=== PATIENT | male | born 1995 | race Caucasian/White ===

== ENCOUNTER 2021-02-08 01:25 | Observation (INO) | payer MEDICAID ==
--- NOTE | 2021-02-08 01:50 | ERPHSYRPT ---
- History of Present Illness Time Seen by Provider: 02/08/21 01:40 Source: patient, EMS, police Exam Limitations: no limitations Physician History: This is a 25-year-old white male who was brought into the emergency department because of suicidal ideation/thoughts. Patient admits to consuming alcohol. Patient is under a lot of stress. His is as is his patient girlfriend. Patient states that he has been under a lot of pressure for quite a while now. Patient was asked by law enforcement who brought him into the emergency department that he have a plan. Law enforcement asked if he was going to use a knife. The patient then stated no he would use a gun because a knife would be too messy. Patient does not have any chest pain or shortness of melissa ath. Timing/Duration: today Severity of Symptoms-Max: moderate Severity of Symptoms-Current: moderate Suicidal thoughts: specific plan Associated Symptoms: anxiety, depressed, suicidal ideation, other (Under a lot of stress) Previous symptoms: no prior history Allergies/Adverse Reactions: No Known Drug Allergies Allergy (Unverified 02/08/21 01:48) Home Medications: No Reportable Medications [No Reported Medications] 02/08/21 [History] Travel Risk - International Travel Have you traveled outside of the country in past 3 weeks: No - Coronavirus Screening Are you exhibiting any of the following symptoms?: No Close contact with a COVID-19 positive Pt in past 14-21 Days: No - Past Medical History Pertinent Past Medical History: Yes - Past Surgical History Past Surgical History: Yes - Review of Systems Constitutional: No Symptoms Eyes: No Symptoms Ears, Nose, & Throat: No Symptoms Respiratory: No Symptoms Cardiac: No Symptoms Abdominal/Gastrointestinal: No Symptoms Genitourinary Symptoms: No Symptoms Musculoskeletal: No Symptoms Skin: No Symptoms Neurological: No Symptoms Psychological: Suicidal Ideations Endocrine: No Symptoms Hematologic/Lymphatic: No Symptoms Immunological/Allergic: No Symptoms All Other Systems: Reviewed and Negative - Nursing Vital Signs Nursing Vital Signs: Initial Vital Signs Temperature 97.3 F 02/08/21 01:26 Pulse Rate 90 02/08/21 01:26 Respiratory Rate 20 02/08/21 01:26 Blood Pressure 106/83 02/08/21 01:26 O2 Sat by Pulse Oximetry 98 02/08/21 01:26 Pain Scale Pain Intensity 0 - Physical Exam General Appearance: no apparent distress, alert, anxiety, other (Alcohol intox ication) Eyes, Ears, Nose, Throat Exam: normal ENT inspection, moist mucous membranes Neck Exam: normal inspection, non-tender, supple, full range of motion Respiratory Exam: normal breath sounds, lungs clear, airway intact, No chest tenderness, No respiratory distress Cardiovascular Exam: regular rate/rhythm, normal heart sounds, normal peripheral pulses Gastrointestinal/Abdominal Exam: soft, normal bowel sounds, No tenderness Extremities Exam: normal inspection, normal range of motion, No evidence of injury Current Suicidality: denies suicide plan, has suicide plan Neurological Exam: alert, normal mood/affect, calm, 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 No comparison EKG.) Ordered Tests: Active Orders 24 hr Category Date Time Status EKG-ER Only STAT Care 02/08/21 02:02 Active ACETAMINOPHEN Stat Lab 02/08/21 02:09 Completed CBC W DIFF Stat Lab 02/08/21 02:09 Completed CMP Stat Lab 02/08/21 02:09 Completed ETHYL ALCOHOL Stat Lab 02/08/21 02:09 Completed SALICYLATE Stat Lab 02/08/21 02:09 Completed UA W/RFX UR CULTURE Stat Lab 02/08/21 02:24 Completed Urine Triage Profile Stat Lab 02/08/21 02:24 Completed Lab/Rad Data: Laboratory Result Diagrams 02/08/21 02:09 02/08/21 02:09 Laboratory Results 02/08/21 02/08/21 02/08/21 Range/Units 03:10 02:24 02:24 WBC (4.0-10.5) K/mm3 RBC (4.1-5.6) M/mm3 Hgb (12.5-18.0) gm/dl Hct (42-50) % MCV (78-100) fl MCH (26-32) pg MCHC (32-36) g/dl RDW (11.5-14.0) % Plt Count (150-450) K/mm3 MPV (7.5-11.0) fl Gran % (36.0-66.0) % Eos # (Auto) (0-0.5) Absolute Lymphs (auto) (1.0-4.6) Absolute Monos (auto) (0.0-1.3) Lymphocytes % (24.0-44.0) % Monocytes % (0.0-12.0) % Eosinophils % (0.00-5.0) % Basophils % (0.0-0.4) % Absolute Granulocytes (1.4-6.9) Basophils # (0-0.4) Sodium (137-145) mmol/L Potassium (3.5-5.1) mmol/L Chloride (98-107) mmol/L Carbon Dioxide (22-30) mmol/L Anion Gap (5-15) MEQ/L BUN (9-20) mg/dL Creatinine (0.66-1.25) mg/dL Estimated GFR ML/MIN Glucose (74-106) mg/dL Calcium (8.4-10.2) mg/dL Total Bilirubin (0.2-1.3) mg/dL AST (17-59) U/L ALT (0-50) U/L Alkaline Phosphatase (38-126) U/L Serum Total Protein (6.3-8.2) g/dL Albumin (3.5-5.0) g/dL Urine Color STRAW (YELLOW) Urine Appearance CLEAR (CLEAR) Urine pH 6.0 (5-6) Ur Specific [place] 1.005 (1.005-1.025) Urine Protein NEGATIVE (Negative) Urine Ketones NEGATIVE (NEGATIVE) Urine Blood NEGATIVE (0-5) Mark/ul Urine Nitrite NEGATIVE (NEGATIVE) Urine Bilirubin NEGATIVE (NEGATIVE) Urine Urobilinogen NEGATIVE (0-1) mg/dL Ur Leukocyte Esterase NEGATIVE (NEGATIVE) Urine WBC (Auto) NONE (0-5) /HPF Urine RBC (Auto) NONE (0-2) /HPF U Epithel Cells (Auto) NONE (FEW) /HPF Urine Bacteria (Auto) NONE (NEGATIVE) /HPF Urine Culture Reflexed NO (NO) Urine Glucose NEGATIVE (NEGATIVE) mg/dL Salicylates (2-20) mg/dL Urine Opiates Level NEGATIVE (NEGATIVE) Ur Methadone NEGATIVE (NEGATIVE) Acetaminophen (10-30) ug/ml Urine Barbiturates NEGATIVE (NEGATIVE) Ur Phencyclidine (PCP) NEGATIVE (NEGATIVE) Urine Amphetamine NEGATIVE (NEGATIVE) U Benzodiazepine Level NEGATIVE (NEGATIVE) Urine Cocaine NEGATIVE (NEGATIVE) Urine Marijuana (THC) POSITIVE (NEGATIVE) Ethyl Alcohol (0-10) mg/dL SARS-CoV-2 (PCR) NEGATIVE (NEGATIVE) 02/08/21 02/08/21 Range/Units 02:09 02:09 WBC 6.6 (4.0-10.5) K/mm3 RBC 5.08 (4.1-5.6) M/mm3 Hgb 15.8 (12.5-18.0) gm/dl Hct 46.9 (42-50) % MCV 92.3 (78-100) fl MCH 31.1 (26-32) pg MCHC 33.7 (32-36) g/dl RDW 13.4 (11.5-14.0) % Plt Count 268 (150-450) K/mm3 MPV 10.7 (7.5-11.0) fl Gran % 49.3 (36.0-66.0) % Eos # (Auto) 0.23 (0-0.5) Absolute Lymphs (auto) 2.58 (1.0-4.6) Absolute Monos (auto) 0.46 (0.0-1.3) Lymphocytes % 39.3 (24.0-44.0) % Monocytes % 7.0 (0.0-12.0) % Eosinophils % 3.5 (0.00-5.0) % Basophils % 0.9 (0.0-0.4) % Absolute Granulocytes 3.24 (1.4-6.9) Basophils # 0.06 (0-0.4) Sodium 144 (137-145) mmol/L Potassium 4.1 (3.5-5.1) mmol/L Chloride 107 (98-107) mmol/L Carbon Dioxide 25 (22-30) mmol/L Anion Gap 15.4 H (5-15) MEQ/L BUN 13 (9-20) mg/dL Creatinine 1.14 (0.66-1.25) mg/dL Estimated GFR > 60.0 ML/MIN Glucose 96 (74-106) mg/dL Calcium 9.3 (8.4-10.2) mg/dL Total Bilirubin 0.50 (0.2-1.3) mg/dL AST 92 H (17-59) U/L ALT 165 H (0-50) U/L Alkaline Phosphatase 76 (38-126) U/L Serum Total Protein 7.9 (6.3-8.2) g/dL Albumin 4.9 (3.5-5.0) g/dL Urine Color (YELLOW) Urine Appearance (CLEAR) Urine pH (5-6) Ur Specific [place] (1.005-1.025) Urine Protein (Negative) Urine Ketones (NEGATIVE) Urine Blood (0-5) Mark/ul Urine Nitrite (NEGATIVE) Urine Bilirubin (NEGATIVE) Urine Urobilinogen (0-1) mg/dL Ur Leukocyte Esterase (NEGATIVE) Urine WBC (Auto) (0-5) /HPF Urine RBC (Auto) (0-2) /HPF U Epithel Cells (Auto) (FEW) /HPF Urine Bacteria (Auto) (NEGATIVE) /HPF Urine Culture Reflexed (NO) Urine Glucose (NEGATIVE) mg/dL Salicylates < 1.0 L (2-20) mg/dL Urine Opiates Level (NEGATIVE) Ur Methadone (NEGATIVE) Acetaminophen < 10 L (10-30) ug/ml Urine Barbiturates (NEGATIVE) Ur Phencyclidine (PCP) (NEGATIVE) Urine Amphetamine (NEGATIVE) U Benzodiazepine Level (NEGATIVE) Urine Cocaine (NEGATIVE) Urine Marijuana (THC) (NEGATIVE) Ethyl Alcohol 223 H (0-10) mg/dL SARS-CoV-2 (PCR) (NEGATIVE) - Progress Progress: improved Progress Note: 02/08/21 03:13 Medical decision making: This patient is medically cleared for psychiatric consultation. However, they require his blood alcohol to be in normal range. It is not. His blood alcohol is too high to obtain a consultation. Therefore, we will place him in observation into the hospital and will repeat blood alcohol level in a few hours. I spoke with Dr. Wilkerson who is covering for unassigned patients. This patient does not have a primary care physician. We will place him in observation. I discussed this with the patient he understands and agrees. Discussed with : Lyle Counseled pt/family regarding: lab results, diagnosis - Departure Departure Disposition: Observation Clinical Impression: Suicidal ideation, Alcohol intoxication Condition: Stable Critical Care Time: No
[2021-02-08 02:17] LABS: Absolute Neutrophil Ct (ANC) 3.24 (1.4-6.9); BASOPHIL % 0.9 % (0.0-0.4); Basophil (Absolute #) 0.06 (0-0.4); Eosinophil % 3.5 % (0.00-5.0); Eosinophil (Absolute #) 0.23 (0-0.5); Hematocrit 46.9 % (42-50); Hemoglobin 15.8 gm/dl (12.5-18.0); Lymphocyte (Absolute #) 2.58 (1.0-4.6); Lymphocytes % 39.3 % (24.0-44.0); Mean Cell Volume 92.3 fl (78-100); Mean Corpuscular Hemoglobin 31.1 pg (26-32); Mean Corpuscular Hgb Concent. 33.7 g/dl (32-36); Mean Platelet Volume 10.7 fl (7.5-11.0); Monocyte (Absolute #) 0.46 (0.0-1.3); Neutrophil % 49.3 % (36.0-66.0); Platelet Count 268 K/mm3 (150-450); Red Blood Count 5.08 M/mm3 (4.1-5.6); Red Cell Distribution Width 13.4 % (11.5-14.0); White Blood Count 6.6 K/mm3 (4.0-10.5)
[2021-02-08 02:24] LABS: ACETAMINOPHEN < 10 ug/ml (10-30); ALBUMIN 4.9 g/dL (3.5-5.0); ALKALINE PHOSPHATASE 76 U/L (38-126); ANION GAP 15.4 MEQ/L (5-15); BLOOD UREA NITROGEN 13 mg/dL (9-20); CHLORIDE 107 mmol/L (98-107); Calcium 9.3 mg/dL (8.4-10.2); Carbon Dioxide 25 mmol/L (22-30); Creatinine 1 1.14 mg/dL (0.66-1.25); EST GLOMERULAR FILTRATION RATE > 60.0 ML/MIN; ETHYL ALCOHOL 223 mg/dL (0-10); Glucose 96 mg/dL (74-106); Potassium 4.1 mmol/L (3.5-5.1); SALICYLATE < 1.0 mg/dL (2-20); SGOT/AST 92 U/L (17-59); SGPT/ALT 165 U/L (0-50); SODIUM 144 mmol/L (137-145); Total Protein 7.9 g/dL (6.3-8.2)
[2021-02-08 03:33] LABS: Appearance CLEAR (CLEAR); Bilirubin NEGATIVE (NEGATIVE); Blood NEGATIVE Ery/ul (0-5); Glucose NEGATIVE (NEGATIVE); Ketones NEGATIVE (NEGATIVE); Leukocyte Esterase NEGATIVE (NEGATIVE); Nitrite NEGATIVE (NEGATIVE); Protein,Urine Dip NEGATIVE (Negative); Specific Gravity 1.005 (1.005-1.025); Urobilinogen NEGATIVE mg/dL (0-1)
[2021-02-08 03:38] LABS: Amphetamine,Urine NEGATIVE (NEGATIVE); Barbiturate,Urine NEGATIVE (NEGATIVE); Benzodiazepine,Urine NEGATIVE (NEGATIVE); Cocaine,Urine NEGATIVE (NEGATIVE); Methadone,Urine NEGATIVE (NEGATIVE); Opiate,Urine NEGATIVE (NEGATIVE); PCP,Urine NEGATIVE (NEGATIVE); THC,Urine POSITIVE (NEGATIVE)
[2021-02-08] MEDS ORDERED: ZOFRAN ODT 4 MG PO PRN (04:32)
--- NOTE | 2021-02-08 08:34 | PCM.HP ---
History of Present Illness - Chief Complaint Chief Complaint: SI History of Present Illness: is a 25 year old male who presented to the ER last night, he was drinking heavily and apparently made some comments about being suicidal, he currently lives with his girlfriend and 2 small children ages 2 years and 3 weeks. He reports that he is under a lot of stress and his relationship with the mother of his children is tenuous. He reports that they were both drinking alcohol and she began to upset him which led to this incident. He denies having a plan and denies feeling suicidal today, he has no prior suicide attempts and has never been treated for depression in the past. He reports some marijuana use but no other illicit drugs, last smoked 2-3 weeks ago. States he has had a problem with alcohol in the past so doesn't drink every day. - Review of Systems Constitutional: No Fever, No Chills Respiratory: No Cough, No Short Of Breath Cardiac: No Chest Pain, No Edema, No Syncope Abdominal/Gastrointestinal: No Abdominal Pain, No Nausea, No Vomiting, No Diarrhea Skin: No Rash Psychological: Alcohol Abuse, Drug Abuse, Suicidal Ideations, No Homicidal Ideations, No Hallucinations Medications & Allergies Home Medications: Home Medication List No Reportable Medications [No Reported Medications] 02/08/21 [History Confirmed 02/08/21] Allergies/Adverse Reactions: Allergies Allergy/AdvReac Type Severity Reaction Status Date / Time No Known Drug Allergies Allergy Unverified 02/08/21 01:48 - Past Medical History Past Medical History: Yes Neurological History: No Pertinent History ENT History: No Pertinent History Cardiac History: No Pertinent History Respiratory History: No Pertinent History Endocrine Medical History: No Pertinent History Musculoskelatal History: Fractures GI Medical History: No Pertinent History History: No Pertinent History Pyscho-Social History: Anxiety, Depression Male Reproductive Disorders: No Pertinent History Comment: lt wrist fx - Past Surgical History Past Surgical History: Yes Neuro Surgical History: No Pertinent History Cardiac History: No Pertinent History Respiratory Surgery: No Pertinent History GI Surgical History: No Pertinent History Genitourinary Surgical Hx: No Pertinent History Musculskeletal Surgical Hx: No Pertinent History Male Surgical History: No Pertinent History - Social History Smoking Status: Current every day smoker How long have you smoked: 13 yrs Exposure to second hand smoke: Yes Alcohol: Daily Drug Use: marijuana - Physical Exam Vital Signs: Vital Signs - 24 hr Temp Pulse Resp BP Pulse Ox 02/08/21 08:00 97.4 F 85 14 106/59 96 02/08/21 05:21 97.7 F 84 21 128/66 98 02/08/21 04:26 98 02/08/21 04:21 88 94/53 95 02/08/21 03:29 83 90/60 94 L 02/08/21 01:26 97.3 F 90 20 106/83 98 General Appearance: no apparent distress Neurologic Exam: alert, oriented x 3, cooperative Respiratory Exam: normal breath sounds, lungs clear, No respiratory distress Cardiovascular Exam: regular rate/rhythm, normal heart sounds, normal peripheral pulses Gastrointestinal/Abdomen Exam: soft, normal bowel sounds, No tenderness, No mass Extremity Exam: normal inspection, normal range of motion, pelvis stable Skin Exam: normal color, warm, dry, No rash Results - Labs Lab/Micro Results: Lab Results-Last 24 Hours 02/08/21 02/08/21 02/08/21 Range/Units 02:09 02:09 02:24 WBC 6.6 (4.0-10.5) K/mm3 RBC 5.08 (4.1-5.6) M/mm3 Hgb 15.8 (12.5-18.0) gm/dl Hct 46.9 (42-50) % MCV 92.3 (78-100) fl MCH 31.1 (26-32) pg MCHC 33.7 (32-36) g/dl RDW 13.4 (11.5-14.0) % Plt Count 268 (150-450) K/mm3 MPV 10.7 (7.5-11.0) fl Gran % 49.3 (36.0-66.0) % Eos # (Auto) 0.23 (0-0.5) Absolute Lymphs (auto) 2.58 (1.0-4.6) Absolute Monos (auto) 0.46 (0.0-1.3) Lymphocytes % 39.3 (24.0-44.0) % Monocytes % 7.0 (0.0-12.0) % Eosinophils % 3.5 (0.00-5.0) % Basophils % 0.9 (0.0-0.4) % Absolute Granulocytes 3.24 (1.4-6.9) Basophils # 0.06 (0-0.4) Sodium 144 (137-145) mmol/L Potassium 4.1 (3.5-5.1) mmol/L Chloride 107 (98-107) mmol/L Carbon Dioxide 25 (22-30) mmol/L Anion Gap 15.4 H (5-15) MEQ/L BUN 13 (9-20) mg/dL Creatinine 1.14 (0.66-1.25) mg/dL Estimated GFR > 60.0 ML/MIN Glucose 96 (74-106) mg/dL Calcium 9.3 (8.4-10.2) mg/dL Total Bilirubin 0.50 (0.2-1.3) mg/dL AST 92 H (17-59) U/L ALT 165 H (0-50) U/L Alkaline Phosphatase 76 (38-126) U/L Serum Total Protein 7.9 (6.3-8.2) g/dL Albumin 4.9 (3.5-5.0) g/dL Urine Color STRAW (YELLOW) Urine Appearance CLEAR (CLEAR) Urine pH 6.0 (5-6) Ur Specific [place] 1.005 (1.005-1.025) Urine Protein NEGATIVE (Negative) Urine Ketones NEGATIVE (NEGATIVE) Urine Blood NEGATIVE (0-5) Mark/ul Urine Nitrite NEGATIVE (NEGATIVE) Urine Bilirubin NEGATIVE (NEGATIVE) Urine Urobilinogen NEGATIVE (0-1) mg/dL Ur Leukocyte Esterase NEGATIVE (NEGATIVE) Urine WBC (Auto) NONE (0-5) /HPF Urine RBC (Auto) NONE (0-2) /HPF U Epithel Cells (Auto) NONE (FEW) /HPF Urine Bacteria (Auto) NONE (NEGATIVE) /HPF Urine Culture Reflexed NO (NO) Urine Glucose NEGATIVE (NEGATIVE) mg/dL Salicylates < 1.0 L (2-20) mg/dL Urine Opiates Level (NEGATIVE) Ur Methadone (NEGATIVE) Acetaminophen < 10 L (10-30) ug/ml Urine Barbiturates (NEGATIVE) Ur Phencyclidine (PCP) (NEGATIVE) Urine Amphetamine (NEGATIVE) U Benzodiazepine Level (NEGATIVE) Urine Cocaine (NEGATIVE) Urine Marijuana (THC) (NEGATIVE) Ethyl Alcohol 223 H (0-10) mg/dL SARS-CoV-2 (PCR) (NEGATIVE) 02/08/21 02/08/21 02/08/21 Range/Units 02:24 03:10 05:50 WBC (4.0-10.5) K/mm3 RBC (4.1-5.6) M/mm3 Hgb (12.5-18.0) gm/dl Hct (42-50) % MCV (78-100) fl MCH (26-32) pg MCHC (32-36) g/dl RDW (11.5-14.0) % Plt Count (150-450) K/mm3 MPV (7.5-11.0) fl Gran % (36.0-66.0) % Eos # (Auto) (0-0.5) Absolute Lymphs (auto) (1.0-4.6) Absolute Monos (auto) (0.0-1.3) Lymphocytes % (24.0-44.0) % Monocytes % (0.0-12.0) % Eosinophils % (0.00-5.0) % Basophils % (0.0-0.4) % Absolute Granulocytes (1.4-6.9) Basophils # (0-0.4) Sodium (137-145) mmol/L Potassium (3.5-5.1) mmol/L Chloride (98-107) mmol/L Carbon Dioxide (22-30) mmol/L Anion Gap (5-15) MEQ/L BUN (9-20) mg/dL Creatinine (0.66-1.25) mg/dL Estimated GFR ML/MIN Glucose (74-106) mg/dL Calcium (8.4-10.2) mg/dL Total Bilirubin (0.2-1.3) mg/dL AST (17-59) U/L ALT (0-50) U/L Alkaline Phosphatase (38-126) U/L Serum Total Protein (6.3-8.2) g/dL Albumin (3.5-5.0) g/dL Urine Color (YELLOW) Urine Appearance (CLEAR) Urine pH (5-6) Ur Specific [place] (1.005-1.025) Urine Protein (Negative) Urine Ketones (NEGATIVE) Urine Blood (0-5) Mark/ul Urine Nitrite (NEGATIVE) Urine Bilirubin (NEGATIVE) Urine Urobilinogen (0-1) mg/dL Ur Leukocyte Esterase (NEGATIVE) Urine WBC (Auto) (0-5) /HPF Urine RBC (Auto) (0-2) /HPF U Epithel Cells (Auto) (FEW) /HPF Urine Bacteria (Auto) (NEGATIVE) /HPF Urine Culture Reflexed (NO) Urine Glucose (NEGATIVE) mg/dL Salicylates (2-20) mg/dL Urine Opiates Level NEGATIVE (NEGATIVE) Ur Methadone NEGATIVE (NEGATIVE) Acetaminophen (10-30) ug/ml Urine Barbiturates NEGATIVE (NEGATIVE) Ur Phencyclidine (PCP) NEGATIVE (NEGATIVE) Urine Amphetamine NEGATIVE (NEGATIVE) U Benzodiazepine Level NEGATIVE (NEGATIVE) Urine Cocaine NEGATIVE (NEGATIVE) Urine Marijuana (THC) POSITIVE (NEGATIVE) Ethyl Alcohol 145 H (0-10) mg/dL SARS-CoV-2 (PCR) NEGATIVE (NEGATIVE) Assessment/Plan (1) Suicidal ideation Current Visit: Yes Status: Acute Assessment & Plan: awaiting psych consult when ETOH level is down, seems remorseful and states he feels safe returning to his home and current living situation when he is released. Code(s): R45.851 - SUICIDAL IDEATIONS (2) Alcohol intoxication Current Visit: Yes Status: Acute Assessment & Plan: repeat level at 1200 today, psych consult when able
[2021-02-08 11:40] VITALS: BP 128/78; O2SAT 93
[2021-02-08 12:09] VITALS: PULSE 84
[2021-02-08 13:05] LABS: ALBUMIN 4.9 g/dL (3.5-5.0); ALKALINE PHOSPHATASE 81 U/L (38-126); BLOOD UREA NITROGEN 16 mg/dL (9-20); CHLORIDE 104 mmol/L (98-107); Calcium 9.5 mg/dL (8.4-10.2); Carbon Dioxide 24 mmol/L (22-30); Creatinine 1 1.18 mg/dL (0.66-1.25); EST GLOMERULAR FILTRATION RATE > 60.0 ML/MIN; ETHYL ALCOHOL < 10 mg/dL (0-10); Glucose 81 mg/dL (74-106); Potassium 4.1 mmol/L (3.5-5.1); SGOT/AST 71 U/L (17-59); SGPT/ALT 151 U/L (0-50); SODIUM 139 mmol/L (137-145); Total Protein 7.8 g/dL (6.3-8.2)
--- NOTE | 2021-02-08 14:08 | PCM.DS ---
Discharge Summary Date of Admission: 02/08/21 04:19 Admitting Physician: BRANDON JOSEPH Consults: Consults on Case 02/08/21 12:00 Consult,Monty [Psychiatric Consult] STAT Primary Care Provider: NO FAMILY DOCTOR Allergies Allergies No Known Drug Allergies Allergy (Unverified 02/08/21 01:48) Hospital Summary - Hospital Course Hospital Course: patient admitted with acute alcohol intoxication and suicidal ideation, he was regretful when sober this morning. denies any suicidal or homicidal ideations, no previous attempts. seen by psych and cleared for discharge with safety plan - Vitals & Intake/Output Vital Signs: Vital Signs Temperature 98.1 F 02/08/21 11:39 Pulse Rate 84 02/08/21 12:00 Respiratory Rate 14 02/08/21 12:00 Blood Pressure 128/78 02/08/21 11:39 O2 Sat by Pulse Oximetry 93 L 02/08/21 11:39 Intake & Output: Intake & Output 02/06/21 02/07/21 02/08/21 02/09/21 11:59 11:59 11:59 11:59 Intake Total 100 Balance 100 Weight 104.2 kg - Lab Result Diagrams: 02/08/21 02:09 02/08/21 12:35 Lab Results-Last 24 Hrs: Lab Results-Last 24 Hours 02/08/21 02/08/21 02/08/21 Range/Units 02:09 02:09 02:24 WBC 6.6 (4.0-10.5) K/mm3 RBC 5.08 (4.1-5.6) M/mm3 Hgb 15.8 (12.5-18.0) gm/dl Hct 46.9 (42-50) % MCV 92.3 (78-100) fl MCH 31.1 (26-32) pg MCHC 33.7 (32-36) g/dl RDW 13.4 (11.5-14.0) % Plt Count 268 (150-450) K/mm3 MPV 10.7 (7.5-11.0) fl Gran % 49.3 (36.0-66.0) % Eos # (Auto) 0.23 (0-0.5) Absolute Lymphs (auto) 2.58 (1.0-4.6) Absolute Monos (auto) 0.46 (0.0-1.3) Lymphocytes % 39.3 (24.0-44.0) % Monocytes % 7.0 (0.0-12.0) % Eosinophils % 3.5 (0.00-5.0) % Basophils % 0.9 (0.0-0.4) % Absolute Granulocytes 3.24 (1.4-6.9) Basophils # 0.06 (0-0.4) Sodium 144 (137-145) mmol/L Potassium 4.1 (3.5-5.1) mmol/L Chloride 107 (98-107) mmol/L Carbon Dioxide 25 (22-30) mmol/L Anion Gap 15.4 H (5-15) MEQ/L BUN 13 (9-20) mg/dL Creatinine 1.14 (0.66-1.25) mg/dL Estimated GFR > 60.0 ML/MIN Glucose 96 (74-106) mg/dL Calcium 9.3 (8.4-10.2) mg/dL Total Bilirubin 0.50 (0.2-1.3) mg/dL AST 92 H (17-59) U/L ALT 165 H (0-50) U/L Alkaline Phosphatase 76 (38-126) U/L Serum Total Protein 7.9 (6.3-8.2) g/dL Albumin 4.9 (3.5-5.0) g/dL Urine Color STRAW (YELLOW) Urine Appearance CLEAR (CLEAR) Urine pH 6.0 (5-6) Ur Specific Falkner 1.005 (1.005-1.025) Urine Protein NEGATIVE (Negative) Urine Ketones NEGATIVE (NEGATIVE) Urine Blood NEGATIVE (0-5) Mark/ul Urine Nitrite NEGATIVE (NEGATIVE) Urine Bilirubin NEGATIVE (NEGATIVE) Urine Urobilinogen NEGATIVE (0-1) mg/dL Ur Leukocyte Esterase NEGATIVE (NEGATIVE) Urine WBC (Auto) NONE (0-5) /HPF Urine RBC (Auto) NONE (0-2) /HPF U Epithel Cells (Auto) NONE (FEW) /HPF Urine Bacteria (Auto) NONE (NEGATIVE) /HPF Urine Culture Reflexed NO (NO) Urine Glucose NEGATIVE (NEGATIVE) mg/dL Salicylates < 1.0 L (2-20) mg/dL Urine Opiates Level (NEGATIVE) Ur Methadone (NEGATIVE) Acetaminophen < 10 L (10-30) ug/ml Urine Barbiturates (NEGATIVE) Ur Phencyclidine (PCP) (NEGATIVE) Urine Amphetamine (NEGATIVE) U Benzodiazepine Level (NEGATIVE) Urine Cocaine (NEGATIVE) Urine Marijuana (THC) (NEGATIVE) Ethyl Alcohol 223 H (0-10) mg/dL SARS-CoV-2 (PCR) (NEGATIVE) 02/08/21 02/08/21 02/08/21 Range/Units 02:24 03:10 05:50 WBC (4.0-10.5) K/mm3 RBC (4.1-5.6) M/mm3 Hgb (12.5-18.0) gm/dl Hct (42-50) % MCV (78-100) fl MCH (26-32) pg MCHC (32-36) g/dl RDW (11.5-14.0) % Plt Count (150-450) K/mm3 MPV (7.5-11.0) fl Gran % (36.0-66.0) % Eos # (Auto) (0-0.5) Absolute Lymphs (auto) (1.0-4.6) Absolute Monos (auto) (0.0-1.3) Lymphocytes % (24.0-44.0) % Monocytes % (0.0-12.0) % Eosinophils % (0.00-5.0) % Basophils % (0.0-0.4) % Absolute Granulocytes (1.4-6.9) Basophils # (0-0.4) Sodium (137-145) mmol/L Potassium (3.5-5.1) mmol/L Chloride (98-107) mmol/L Carbon Dioxide (22-30) mmol/L Anion Gap (5-15) MEQ/L BUN (9-20) mg/dL Creatinine (0.66-1.25) mg/dL Estimated GFR ML/MIN Glucose (74-106) mg/dL Calcium (8.4-10.2) mg/dL Total Bilirubin (0.2-1.3) mg/dL AST (17-59) U/L ALT (0-50) U/L Alkaline Phosphatase (38-126) U/L Serum Total Protein (6.3-8.2) g/dL Albumin (3.5-5.0) g/dL Urine Color (YELLOW) Urine Appearance (CLEAR) Urine pH (5-6) Ur Specific Falkner (1.005-1.025) Urine Protein (Negative) Urine Ketones (NEGATIVE) Urine Blood (0-5) Mark/ul Urine Nitrite (NEGATIVE) Urine Bilirubin (NEGATIVE) Urine Urobilinogen (0-1) mg/dL Ur Leukocyte Esterase (NEGATIVE) Urine WBC (Auto) (0-5) /HPF Urine RBC (Auto) (0-2) /HPF U Epithel Cells (Auto) (FEW) /HPF Urine Bacteria (Auto) (NEGATIVE) /HPF Urine Culture Reflexed (NO) Urine Glucose (NEGATIVE) mg/dL Salicylates (2-20) mg/dL Urine Opiates Level NEGATIVE (NEGATIVE) Ur Methadone NEGATIVE (NEGATIVE) Acetaminophen (10-30) ug/ml Urine Barbiturates NEGATIVE (NEGATIVE) Ur Phencyclidine (PCP) NEGATIVE (NEGATIVE) Urine Amphetamine NEGATIVE (NEGATIVE) U Benzodiazepine Level NEGATIVE (NEGATIVE) Urine Cocaine NEGATIVE (NEGATIVE) Urine Marijuana (THC) POSITIVE (NEGATIVE) Ethyl Alcohol 145 H (0-10) mg/dL SARS-CoV-2 (PCR) NEGATIVE (NEGATIVE) 02/08/21 Range/Units 12:35 WBC (4.0-10.5) K/mm3 RBC (4.1-5.6) M/mm3 Hgb (12.5-18.0) gm/dl Hct (42-50) % MCV (78-100) fl MCH (26-32) pg MCHC (32-36) g/dl RDW (11.5-14.0) % Plt Count (150-450) K/mm3 MPV (7.5-11.0) fl Gran % (36.0-66.0) % Eos # (Auto) (0-0.5) Absolute Lymphs (auto) (1.0-4.6) Absolute Monos (auto) (0.0-1.3) Lymphocytes % (24.0-44.0) % Monocytes % (0.0-12.0) % Eosinophils % (0.00-5.0) % Basophils % (0.0-0.4) % Absolute Granulocytes (1.4-6.9) Basophils # (0-0.4) Sodium 139 (137-145) mmol/L Potassium 4.1 (3.5-5.1) mmol/L Chloride 104 (98-107) mmol/L Carbon Dioxide 24 (22-30) mmol/L Anion Gap 15.0 (5-15) MEQ/L BUN 16 (9-20) mg/dL Creatinine 1.18 (0.66-1.25) mg/dL Estimated GFR > 60.0 ML/MIN Glucose 81 (74-106) mg/dL Calcium 9.5 (8.4-10.2) mg/dL Total Bilirubin 0.80 (0.2-1.3) mg/dL AST 71 H (17-59) U/L ALT 151 H (0-50) U/L Alkaline Phosphatase 81 (38-126) U/L Serum Total Protein 7.8 (6.3-8.2) g/dL Albumin 4.9 (3.5-5.0) g/dL Urine Color (YELLOW) Urine Appearance (CLEAR) Urine pH (5-6) Ur Specific Falkner (1.005-1.025) Urine Protein (Negative) Urine Ketones (NEGATIVE) Urine Blood (0-5) Mark/ul Urine Nitrite (NEGATIVE) Urine Bilirubin (NEGATIVE) Urine Urobilinogen (0-1) mg/dL Ur Leukocyte Esterase (NEGATIVE) Urine WBC (Auto) (0-5) /HPF Urine RBC (Auto) (0-2) /HPF U Epithel Cells (Auto) (FEW) /HPF Urine Bacteria (Auto) (NEGATIVE) /HPF Urine Culture Reflexed (NO) Urine Glucose (NEGATIVE) mg/dL Salicylates (2-20) mg/dL Urine Opiates Level (NEGATIVE) Ur Methadone (NEGATIVE) Acetaminophen (10-30) ug/ml Urine Barbiturates (NEGATIVE) Ur Phencyclidine (PCP) (NEGATIVE) Urine Amphetamine (NEGATIVE) U Benzodiazepine Level (NEGATIVE) Urine Cocaine (NEGATIVE) Urine Marijuana (THC) (NEGATIVE) Ethyl Alcohol < 10 (0-10) mg/dL SARS-CoV-2 (PCR) (NEGATIVE) Discharge Exam General Appearance: no apparent distress, alert Neurologic Exam: alert, oriented x 3, cooperative Respiratory Exam: normal breath sounds, lungs clear, No respiratory distress Cardiovascular Exam: regular rate/rhythm, normal heart sounds Gastrointestinal/Abdomen Exam: soft, No tenderness, No mass Final Diagnosis/Problem List - Final Discharge Diagnosis/Problem (1) Suicidal ideation Current Visit: Yes Status: Acute Code(s): R45.851 - SUICIDAL IDEATIONS (2) Alcohol intoxication Current Visit: Yes Status: Acute - Discharge Disposition: Home, Self-Care Condition: Stable Prescriptions: No Action No Reportable Medications [No Reported Medications] Instructions: Alcohol Abuse and Alcoholism (DC), Self-Harm (DC) Additional Instructions: follow safety plan from [facility]. Follow up with: [facility] [Provider Group] - 02/13/21 8:45 am (appointment will be by phone. someone from [facility] will call you the day before or the day of appointment to get you registered) BRANDON JOSEPH MD [ACTIVE STAFF] - 02/15/21 2:15 pm Forms: Discharge Instructions
== END 2021-02-08 14:15 | disposition home or self-care (01) ==
LOC: ED 01:25 → ICU 04:19
PROVIDERS: ADMIT Family Medicine; ATTEND Family Medicine
DX: R45.851 Suicidal ideations (principal); F10.929 Alcohol use, unspecified with intoxication, unspecified; Z20.828 Contact with and (suspected) exposure to other viral communicable diseases
CPT/HCPCS: 36415; 80053; 80307; 81001; 85025; 93005; 93268; 99285; G0378; U0003; G0480

== ENCOUNTER 2022-05-09 00:43 | Emergency (ER) | payer MEDICAID ==
[2022-05-09] MEDS ORDERED: BENADRYL 25 MG CAPSULE PO ONE (01:00)
[2022-05-09 01:02] VITALS: O2SAT 98
[2022-05-09] MEDS ORDERED: BENADRYL 25 MG CAPSULE ONE (01:03)
--- NOTE | 2022-05-09 01:08 | ERPHSYRPT ---
- History of Present Illness Source: patient Exam Limitations: no limitations Patient Subjective Stated Complaint: pt states "I seen these hives on my arms, neck, and face." pt states that he had carnival food tonight but I eat those foods all the time. Triage Nursing Assessment: pt ambulated into the er; pt is axo x4; c/o urticaria; pt states 3/10 pain to head; urticaria present to BUE, neck, face; ETOH; hypertensive; pt denies taking any OTC prior to coming in; skin pink, dry, warm Physician History: 26 yo wm w hives x 30 minutes. Pt states that he [place] [employer] and was possibly allergic to something he ate. He denies dysphagia and dyspnea. Pt has been drinking alcohol tonight and drinks daily. Rash is pruritic. Fever/cough/N/V/D all denied. Timing/Duration: other (30 minutes) Quality: itchy Severity: mild Location: generalized Possible Causes: other (Possible corn dog) Modifying Factors: Improves With: other Associated Symptoms: denies symptoms Allergies/Adverse Reactions: No Known Drug Allergies Allergy (Verified 05/09/22 00:49) Hx Tetanus, Diphtheria Vaccination/Date Given: No Hx Influenza Vaccination/Date Given: No Hx Pneumococcal Vaccination/Date Given: No Travel Risk - International Travel Have you traveled outside of the country in past 3 weeks: No - Coronavirus Screening Are you exhibiting any of the following symptoms?: No Close contact with a COVID-19 positive Pt in past 14-21 Days: Yes - Vaccine Status Have you recieved a Covid-19 vaccination: No - Review of Systems Constitutional: No Symptoms Eyes: No Symptoms Ears, Nose, & Throat: No Symptoms Respiratory: No Symptoms Cardiac: No Symptoms Abdominal/Gastrointestinal: No Symptoms Musculoskeletal: No Symptoms Neurological: No Symptoms Psychological: No Symptoms Endocrine: No Symptoms Hematologic/Lymphatic: No Symptoms Immunological/Allergic: No Symptoms - Past Medical History Pertinent Past Medical History: Yes Neurological History: No Pertinent History ENT History: No Pertinent History Cardiac History: No Pertinent History Respiratory History: No Pertinent History Endocrine Medical History: No Pertinent History Musculoskeletal History: Fractures GI Medical History: No Pertinent History History: No Pertinent History Psycho-Social History: Anxiety, Depression Male Reproductive Disorders: No Pertinent History Other Medical History: lt wrist fx - Past Surgical History Past Surgical History: Yes Neuro Surgical History: No Pertinent History Cardiac: No Pertinent History Respiratory: No Pertinent History Gastrointestinal: No Pertinent History Genitourinary: No Pertinent History Musculoskeletal: No Pertinent History Male Surgical History: No Pertinent History - Social History Smoking Status: Current every day smoker How long have you smoked: 13 yrs Exposure to second hand smoke: Yes Drug Use: none Patient Lives Alone: No Significant Family History: no pertinent family hx - Nursing Vital Signs Nursing Vital Signs: Initial Vital Signs Temperature 97.7 F 05/09/22 00:49 Pulse Rate 102 H 05/09/22 00:49 Respiratory Rate 14 05/09/22 00:49 Blood Pressure 140/81 05/09/22 00:49 O2 Sat by Pulse Oximetry 98 05/09/22 00:49 Pain Scale Pain Intensity 2 Tachy/Hypertensive - Physical Exam General Appearance: no apparent distress Eye Exam: PERRL/EOMI, eyes nml inspection Ears, Nose, Throat Exam: normal ENT inspection, TMs normal, pharynx normal, moist mucous membranes Neck Exam: normal inspection, non-tender, supple, full range of motion, No meningismus, No mass, No Brudzinski, No Kernig's Respiratory Exam: normal breath sounds, lungs clear, airway intact, No respiratory distress Cardiovascular Exam: normal heart sounds, normal peripheral pulses, tachycardia (Mildly tachy), capillary refill <2 sec, No murmur Gastrointestinal/Abdomen Exam: soft, normal bowel sounds, No tenderness Back Exam: normal inspection, normal range of motion, No CVA tenderness Extremity Exam: normal range of motion, pelvis stable Neurologic Exam: alert, oriented x 3, cooperative, local superintendent II-XII nml as tested, nml cerebellar function, nml station & gait, sensation nml Skin Exam: other (Urticaria noted-generalized) Lymphatic Exam: No adenopathy SpO2 Interpretation: normal SpO2: 98 O2 Delivery: Room Air - Course Nursing assessment & vital signs reviewed: Yes Ordered Tests: Medication Summary Discontinued Medications Generic Name Dose Route Start Last Admin Trade Name Freq PRN Reason Stop Dose Admin Diphenhydramine HCl 25 mg 05/09/22 01:00 05/09/22 01:04 Diphenhydramine Hcl 25 Mg Capsule PO 05/09/22 01:01 25 mg STAT ONE Administration Diphenhydramine HCl Confirm 05/09/22 01:03 Diphenhydramine Hcl 25 Mg Capsule Administered 05/09/22 01:04 Dose 25 mg .ROUTE .[employer]-MED ONE - Progress Progress Note: 05/09/22 01:09 25mg po Benadryl No evidence of anaphylaxis/Great airway Pt asked for work excuse 05/09/22 01:17 Counseled pt/family regarding: diagnosis, need for follow-up - Departure Departure Disposition: Home Clinical Impression: Urticaria Condition: Stable Critical Care Time: No Referrals: DOCTOR,NO FAMILY [Primary Care Provider] - Follow up/PCP as directed Instructions: Jackie (BETINA), Allergic Reaction ED Additional Instructions: Benadryl 25mg every 6 hours as needed Return to ER worsening rash/shortness of breath/trouble swallowing EpiPen as needed for severe allergic reaction Forms: Work/School Release Form Prescriptions: Epinephrine [Auvi-Q] 0.3 mg IJ DAILY PRN PRN #2 PRN Reason: Allergies
[2022-05-09 01:17] VITALS: BP 139/65; PULSE 104
== END 2022-05-09 01:25 | disposition home or self-care (01) ==
LOC: ED 00:43
DX: L50.9 Urticaria, unspecified (principal); Z72.0 Tobacco use; Z28.310 Unvaccinated for COVID-19
CPT/HCPCS: 99281; A9270-GY

== ENCOUNTER 2022-10-17 22:59 | Emergency (ER) | payer MEDICAID ==
--- NOTE | 2022-10-17 23:06 | ERPHSYRPT ---
- History of Present Illness Time Seen by Provider: 10/17/22 23:06 Source: patient Exam Limitations: no limitations Physician History: This is a 26-year-old white male who stepped off his porch and twisted his right foot. Patient states that the pain is on the dorsal aspect of his right foot and the instep of the right foot. Patient has no pain in his ankle. This occurred approximately 6 PM this evening and he was concerned that the pain is not improving. Method of Injury: twisted Occurred: this evening Quality: aching Severity of Pain-Max: mild (To moderate) Severity of Pain-Current: mild (To moderate) Lower Extremities Pain: foot: right Modifying Factors: Improves With: movement Associated Symptoms: other (Hurts to bear weight but can do so) Allergies/Adverse Reactions: No Known Drug Allergies Allergy (Verified 10/17/22 23:11) Home Medications: No Reportable Medications [No Reported Medications] 10/17/22 [History] Hx Tetanus, Diphtheria Vaccination/Date Given: No Hx Influenza Vaccination/Date Given: No Hx Pneumococcal Vaccination/Date Given: No Travel Risk - International Travel Have you traveled outside of the country in past 3 weeks: No - Coronavirus Screening Are you exhibiting any of the following symptoms?: No Close contact with a COVID-19 positive Pt in past 14-21 Days: No - Vaccine Status Have you recieved a Covid-19 vaccination: No - Review of Systems Constitutional: No Symptoms Eyes: No Symptoms Ears, Nose, & Throat: No Symptoms Respiratory: No Symptoms Cardiac: No Symptoms Abdominal/Gastrointestinal: No Symptoms Genitourinary Symptoms: No Symptoms Musculoskeletal: Injury (Right foot) Skin: No Symptoms Neurological: No Symptoms Psychological: No Symptoms Endocrine: No Symptoms Hematologic/Lymphatic: No Symptoms Immunological/Allergic: No Symptoms All Other Systems: Reviewed and Negative - Past Medical History Pertinent Past Medical History: Yes Neurological History: No Pertinent History ENT History: No Pertinent History Cardiac History: No Pertinent History Respiratory History: No Pertinent History Endocrine Medical History: No Pertinent History Musculoskeletal History: Fractures GI Medical History: No Pertinent History History: No Pertinent History Psycho-Social History: Anxiety, Depression Male Reproductive Disorders: No Pertinent History Other Medical History: lt wrist fx - Past Surgical History Past Surgical History: Yes Neuro Surgical History: No Pertinent History Cardiac: No Pertinent History Respiratory: No Pertinent History Gastrointestinal: No Pertinent History Genitourinary: No Pertinent History Musculoskeletal: No Pertinent History Male Surgical History: No Pertinent History - Social History Smoking Status: Current every day smoker How long have you smoked: 13 yrs Exposure to second hand smoke: Yes Drug Use: none Patient Lives Alone: No Significant Family History: no pertinent family hx - Nursing Vital Signs Nursing Vital Signs: Initial Vital Signs Temperature 98.8 F 10/17/22 23:00 Pulse Rate 87 10/17/22 23:00 Respiratory Rate 18 10/17/22 23:00 Blood Pressure 147/87 10/17/22 23:00 O2 Sat by Pulse Oximetry 98 10/17/22 23:00 Pain Scale Pain Intensity 10 - Physical Exam General Appearance: no apparent distress, alert, anxiety Eyes, Ears, Nose, Throat Exam: normal ENT inspection, moist mucous membranes Neck Exam: normal inspection, non-tender, supple, full range of motion Cardiovascular/Respiratory Exam: chest non-tender, no respiratory distress Gastrointestinal/Abdominal Exam: non-tender Back Exam: normal inspection, normal range of motion, No CVA tenderness, No vertebral tenderness Hips Exam: bilateral: non-tender, normal inspection, normal range of motion, no evidence of injury Legs Exam: bilateral leg: non-tender, normal inspection, normal range of motion, no evidence of injury Knees Exam: bilateral knee: non-tender, normal inspection, normal range of motion, no evidence of injury Ankle Exam: bilateral ankle: non-tender, normal inspection, normal range of motion, no evidence of injury Foot Exam: right foot: soft tissue tenderness (Dorsal aspect and instep), left foot: non-tender, bilateral foot: normal inspection, normal range of motion, no evidence of injury Neuro/Tendon Exam: normal sensation, normal motor functions, normal tendon functions Mental Status Exam: alert, oriented x 3, cooperative Skin Exam: normal color, warm, dry SpO2 Interpretation: normal SpO2: 98 O2 Delivery: Room Air - Course Nursing assessment & vital signs reviewed: Yes Ordered Tests: Active Orders 24 hr Category Date Time Status FOOT (MINIMUM 3 VIEWS) Stat Exams 10/17/22 23:21 Taken - Progress Progress Note: 10/17/22 23:16 This patient's medical issue is of low complexity. This work-up includes x-ray of the patient's right foot. No other work-up is necessary at this time. This is based on the patient's history, patient's complaint and physical findings on examination. 10/17/22 23:23 X-ray right foot by me. There is no evidence of any acute fracture or dislocation. Counseled pt/family regarding: diagnosis, need for follow-up, rad results Medical Desision Making - Independent Historian Additional History obtained from: Relative/friend - Discussion of managment Reviewed:: Test results Agreed on:: Treatment plan, need for follow-up - Diagnostic Testing Radiological Interpretation: Interpreted by me - Risk of complications Minimal Risk: Minimal risk of morbidity - Departure Departure Disposition: Home Clinical Impression: Right foot sprain Condition: Stable Critical Care Time: No Referrals: DOCTOR,NO FAMILY [Primary Care Provider] - Follow up/PCP as directed Additional Instructions: Soak right foot into an ice bath 3 times a day. Use Tylenol and ibuprofen for pain control. Weightbearing as tolerated. Forms: Work/School Release Form
[2022-10-17 23:36] VITALS: BP 113/58; PULSE 75; O2SAT 97
--- NOTE | 2022-10-18 08:54 | XRAY ---
Indication: Pain following fall. Comparison: None 3 nonweightbearing views right foot obtained. No bony, articular, or soft tissue abnormalities.
== END 2022-10-17 23:35 | disposition home or self-care (01) ==
LOC: ED 22:59
DX: S93.601A Unspecified sprain of right foot, initial encounter (principal); X50.0XXA Overexertion from strenuous movement or load, initial encounter; Y92.007 Garden or yard of unspecified non-institutional (private) residence as the place of occurrence of the external cause; Z28.310 Unvaccinated for COVID-19; Z72.0 Tobacco use
CPT/HCPCS: 73630; 99283

== ENCOUNTER 2024-05-22 01:55 | Emergency (ER) | payer BC, MEDICAID ==
--- NOTE | 2024-05-22 01:57 | ERPHSYRPT ---
- History of Present Illness Time Seen by Provider: 05/22/24 01:57 Source: patient Exam Limitations: no limitations Physician History: This is a 28-year-old white male patient who is sexually active and noticed skin rash on his genital area approximately 1 to 2 weeks ago. It became very itchy. He does wear tight jeans at work and does a lot of sweating. He has been using Goldbond topically as well as Neosporin to the area. Patient does not have a primary care physician. He has no known drug allergies. He is not taking any medications. With the Goldbond the rash in his groin and inner aspect of both thighs has resolved but the rash which was blistering on his penile shaft is now more of crater like with crusting. Patient has had a history of STDs in the past. He thinks he is "clean". Patient has a history of anxiety and depression. He does smoke tobacco cigarettes daily. He denies any abnormal penile discharge Timing/Duration: week(s) Quality: burning, itchy Severity: mild (To moderate) Location: genitalia (Pacifically, penile shaft) Possible Causes: other (HSV2) Associated Symptoms: blisters (Followed by craters present on the patient's penile shaft) Allergies/Adverse Reactions: No Known Drug Allergies Allergy (Verified 05/22/24 02:19) Hx Tetanus, Diphtheria Vaccination/Date Given: No Hx Influenza Vaccination/Date Given: No Hx Pneumococcal Vaccination/Date Given: No Travel Risk - International Travel Have you traveled outside of the country in past 3 weeks: No - Emerging Infectious Disease Are you exhibiting symptoms associated with any current EIDs: No - Review of Systems Constitutional: No Symptoms Eyes: No Symptoms Ears, Nose, & Throat: No Symptoms Respiratory: No Symptoms Cardiac: No Symptoms Abdominal/Gastrointestinal: No Symptoms Genitourinary Symptoms: Other (Penile shaft blistering, craters and crusting. Burning and itching symptoms) Musculoskeletal: No Symptoms Skin: No Symptoms Neurological: No Symptoms Psychological: No Symptoms Endocrine: No Symptoms Hematologic/Lymphatic: No Symptoms Immunological/Allergic: No Symptoms All Other Systems: Reviewed and Negative - Past Medical History Pertinent Past Medical History: Yes Neurological History: No Pertinent History ENT History: No Pertinent History Cardiac History: No Pertinent History Respiratory History: No Pertinent History Endocrine Medical History: No Pertinent History Musculoskeletal History: Fractures GI Medical History: No Pertinent History History: No Pertinent History Psycho-Social History: Anxiety, Depression Male Reproductive Disorders: No Pertinent History Other Medical History: lt wrist fx - Past Surgical History Past Surgical History: Yes Neuro Surgical History: No Pertinent History Cardiac: No Pertinent History Respiratory: No Pertinent History Gastrointestinal: No Pertinent History Genitourinary: No Pertinent History Musculoskeletal: No Pertinent History Male Surgical History: No Pertinent History Significant Family History: no pertinent family hx - Social History Smoking Status: Current every day smoker How long have you smoked: 13 yrs Exposure to second hand smoke: Yes Drug Use: none Patient Lives Alone: No - Nursing Vital Signs Nursing Vital Signs: Initial Vital Signs Temperature 97.9 F 05/22/24 02:00 Pulse Rate 99 H 05/22/24 02:00 Respiratory Rate 16 05/22/24 02:00 Blood Pressure 134/82 05/22/24 02:00 O2 Sat by Pulse Oximetry 93 L 05/22/24 02:00 Pain Scale Pain Intensity 10 - Physical Exam General Appearance: no apparent distress, alert, anxiety Eye Exam: PERRL/EOMI, eyes nml inspection Ears, Nose, Throat Exam: normal ENT inspection, moist mucous membranes Neck Exam: normal inspection, non-tender, supple, full range of motion Respiratory Exam: airway intact, No chest tenderness, No respiratory distress Gastrointestinal/Abdomen Exam: No tenderness Male Genitalia Exam: penile lesion (Multiple penile shaft and shaftcoronal craters present) Rectal Exam: not done Back Exam: normal inspection, normal range of motion, No CVA tenderness, No vertebral tenderness Extremity Exam: normal inspection, normal range of motion, pelvis stable Neurologic Exam: alert, oriented x 3, cooperative, primary care provider II-XII nml as tested, nml cerebellar function, nml station & gait, sensation nml Skin Exam: other (See above male genitourinary section) Lymphatic Exam: No adenopathy SpO2 Interpretation: normal O2 Delivery: Room Air - Course Nursing assessment & vital signs reviewed: Yes Ordered Tests: Active Orders 24 hr Category Date Time Status UA W/RFX UR CULTURE Stat Lab 05/22/24 02:33 Completed Medication Summary Discontinued Medications Generic Name Dose Route Start Last Admin Trade Name Freq PRN Reason Stop Dose Admin Acyclovir 400 mg 05/22/24 02:48 05/22/24 02:51 Acyclovir 200 Mg Capsule PO 05/22/24 02:49 400 mg STAT ONE Administration Acyclovir Confirm 05/22/24 02:50 Acyclovir 200 Mg Capsule Administered 05/22/24 02:51 Dose 400 mg .ROUTE .STK-MED ONE Lab/Rad Data: Laboratory Results 05/22/24 05/22/24 Range/Units 02:46 02:33 Urine Color Yellow (Yellow) Urine Appearance Clear (Clear) Urine pH 6.0 (4.6-8.0) Ur Specific [place] 1.020 (1.005-1.030) Urine Protein Negative (Negative) Urine Glucose (UA) Negative (Negative) mg/dL Urine Ketones Negative (Negative) Urine Blood Negative (Negative) Urine Nitrite Negative (Negative) Urine Bilirubin Negative (Negative) Urine Urobilinogen 1.0 A (0.2) mg/dL Ur Leukocyte Esterase Negative (Negative) U Hyaline Cast (Auto) NONE SEEN (0-2) /LPF Urine Microscopic RBC 0-2 (0-5) /HPF Urine Microscopic WBC 0-2 (0-5) /HPF Ur Epithelial Cells None Seen (None Seen) /HPF Urine Bacteria None Seen (None Seen) /HPF Urine Culture Reflexed NO (NO) Chlamydia DNA Probe NOT DETECTED (NEGATIVE) N.gonorrhoeae DNA Probe NOT DETECTED (NEGATIVE) - Progress Progress: unchanged Progress Note: 05/22/24 02:54 My medical decision making of the assignment of low to moderate complexity is based on review of the patient's past medical history, review of the patient's medication list, reviewed patient drug allergy list, history present illness and physical findings on examination. The workup in this patient includes viral swab of craters of the penile shaft for genital herpes, urinalysis, urine GC chlamydia testing. Differential diagnosis includes but is not limited to genital herpes, chlamydia infection gonococcal infection, urinary tract infection Patient is aware that the viral swabs taken of the craters of the penile shaft is a send out test and we will not have the results back for approximately 1 week. 05/22/24 04:21 I interpreted the patient's urinalysis and urine GC chlamydia results. They are negative. The genital herpes swab is pending. This was told to the patient. 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 Use Tylenol and ibuprofen for pain control. May use Roberta's Butt paste or zinc oxide ointments to apply to genital areas after sitz bath/warm bath with Epsom salts or bacterial soap 2-3 times a day. Before application of the ointments, make sure the genital area is completely dry. Follow the instructions on the [id number] products. Immediately after bath, blot dry the area and use a chair to dry the sites and crevices very well. As best as possible and is much as possible keep the genital area open to air. You may also improve your itching symptoms with cool compresses to the genital area 3 times a day. Follow-up with your primary care provider next week and make arranges for follow-up appointment to be seen in next 3 to 5 days. Prescriptions: Acyclovir 200 mg Cap [Acyclovir] 400 mg PO TID 7 Days #42 cap
[2024-05-22 02:19] VITALS: TEMP 97.9; O2SAT 95
[2024-05-22] MEDS ORDERED: ACYCLOVIR ONE (02:50)
[2024-05-22] MEDS: ACYCLOVIR PO ONE (02:51)
[2024-05-22 02:57] LABS: Appearance Clear (Clear); Bacteria None Seen /HPF (None Seen); Bilirubin Negative (Negative); Blood Negative (Negative); Epithelial Cells None Seen /HPF (None Seen); Glucose, Urine Negative (Negative); Hyaline Casts NONE SEEN /LPF (0-2); Ketones Negative (Negative); Leukocyte Esterase Negative (Negative); Nitrite Negative (Negative); Protein,Urine Dip Negative (Negative); RBC 0-2 /HPF (0-5); WBC 0-2 /HPF (0-5)
[2024-05-22 04:03] VITALS: BP 138/85; PULSE 101; RESP 18
[2024-05-22 04:16] LABS: CHLAMYDIA DNA NOT DETECTED (NEGATIVE); GC DNA Probe NOT DETECTED (NEGATIVE)
[2024-05-25 13:09] LABS: HSV-1 DNA Positive (Negative)
[2024-05-25 19:00] LABS: HSV-2 DNA Negative (Negative)
== END 2024-05-22 04:29 | disposition home or self-care (01) ==
LOC: ED 01:55
DX: A60.01 Herpesviral infection of penis (principal); Z79.899 Other long term (current) drug therapy; Z72.0 Tobacco use
CPT/HCPCS: 36415; 81001; 87491; 87529; 87591; 87798; 99283; A9270-GY